=== PATIENT | female | born 1965 ===

== ENCOUNTER 2017-01-01 18:12 | Emergency (ER) | payer MEDICAID ==
[2017-01-01 18:31] VITALS: BMI 25.7
[2017-01-01] MEDS ORDERED: Dexamethasone 4 mg/1 ml IVP STA (19:06)
[2017-01-01] MEDS ORDERED: Dexamethasone 4 mg/1 ml ONE (19:15)
--- NOTE | 2017-01-01 19:46 | C.PDOC ---
History Of Present Illness 51 year old female presents to the ED complaining of itchy rash to neck and arms since yesterday evening. She reports taking benadryl. She states that itchiness has persisted however the rash has improved slightly. She also notes swelling to her bottom lip. She denies tongue swelling, difficulty swallowing or trouble breathing. She is unsure of what may have caused this reaction. Time Seen by Provider: 01/01/17 18:41 Chief Complaint (Nursing): Allergic Reaction History Per: Patient History/Exam Limitations: no limitations Onset/Duration Of Symptoms: Days Possible Cause: Unknown Home/EMS Treatment: Benadryl Past Medical History Reviewed: Historical Data, Nursing Documentation, Vital Signs Vital Signs: Last Vital Signs Temp 97.8 F 01/01/17 20:01 Pulse 68 01/01/17 20:01 Resp 18 01/01/17 20:01 BP 109/67 01/01/17 20:01 Pulse Ox 100 01/01/17 22:20 - Medical History PMH: No Chronic Diseases Surgical History: No Surg Hx Family History: States: Unknown Family Hx - Social History Hx Alcohol Use: No Hx Substance Use: No - Immunization History Hx Tetanus Toxoid Vaccination: No Hx Influenza Vaccination: No Hx Pneumococcal Vaccination: No Review Of Systems ENT: Negative for: Other (Tongue swelling, Difficulty swallowing) Respiratory: Negative for: Other (Difficulty breathing) Skin: Positive for: Rash Physical Exam - Physical Exam Appears: Non-toxic, No Acute Distress (Comfortable) Skin: Normal Color, Warm, Dry, Rash (Macular erythema to anterior neck) Head: Atraumatic, Normacephalic Eye(s): bilateral: Normal Inspection Tongue: Normal Appearing, No Swelling Lips: Swelling (mild swelling to lower lip) Throat: Normal Neck: Normal ROM Cardiovascular: Rhythm Regular (Rate Regular ) Respiratory: Normal Breath Sounds, No Rales, No Rhonchi, No Stridor, No Wheezing Neurological/Psych: Oriented x3, Normal Speech ED Course And Treatment O2 Sat by Pulse Oximetry: 100 Medical Decision Making Medical Decision Making: Impression: allergic reaction Plan: * Decadron IM * Benadryl PO * Pepcid PO Progress: Patient feeling improved after treatment. Will discharge home for follow up with PCP. Disposition Counseled Patient/Family Regarding: Diagnosis, Need For Followup, Rx Given - Disposition Disposition: HOME/ ROUTINE Disposition Time: 20:30 Condition: STABLE Additional Instructions: Contine tomando Benadryl cada 6 horas segn sea necesario [place] prednisona diariamente Juan un seguimiento con larsen mdico o clnica Regresar al hospital por cualquier empeoramiento de los sntomas Prescriptions: Prednisone 50 mg PO DAILY #4 tablet Instructions: Angioedema (ED), General Allergic Reaction (ED) Forms: [employer] ([place]an) Print Language: ANGOLAN - POA Present On Arrival: None - Clinical Impression Clinical Impression: Urticaria, Angioedema - Scribe Statement The provider has reviewed the documentation as recorded by the Scribe Dilan Stephens
[2017-01-01] MEDS ORDERED: Dexamethasone 4 mg/1 ml IM STA (20:01)
[2017-01-01 20:02] VITALS: BP 109/67; PULSE 68; RESP 18; TEMP 97.8
[2017-01-01 22:09] VITALS: O2SAT 100
== END 2017-01-01 20:38 | disposition home or self-care (01) ==
LOC: C.ER 18:12
DX: T78.3XXA Angioneurotic edema, initial encounter (principal)
CPT/HCPCS: 96372; 99284; J1100